=== PATIENT | male | born 1945 | race Caucasian/White ===

== ENCOUNTER 2021-05-04 01:57 | Inpatient (IN) ==
[2021-05-04] MEDS ORDERED: Naloxone 0.4 MG/ML INJ IVP PRN (13:29)
[2021-05-04] MEDS ORDERED: Ondansetron 4 MG/2 ML VIAL IVP PRN (13:29)
[2021-05-04] MEDS ORDERED: 0.9 % Sodium Chloride 1,000 ML IVC SCH (13:45)
[2021-05-04 14:23] LABS: Basophils % 0.4 %; Eosinophils # 0.2 K/mcL (0.0-0.6); Eosinophils % 2.3 %; Hematocrit 38.6 % (37.5-50.1); Hemoglobin 12.1 g/dL (12.9-16.9); Immature Granulocytes % 0.2 % (0-4); Lymphocytes # 1.6 K/mcL (0.6-4.6); Lymphocytes % 19.4 %; Mean Corpuscular HGB Conc 31.3 g/dL (31.6-35.5); Mean Corpuscular Hemoglobin 30.9 pg (28.0-33.3); Mean Corpuscular Volume 98.5 fL (83.0-100.0); Mean Platelet Volume 12.3 fL (9.4-12.4); Monocytes # 0.6 K/mcL (0.0-1.3); Monocytes % 7.8 %; Neutrophils # 5.7 K/mcL (1.6-8.9); Platelet Count 141 K/mcL (140-400); Red Blood Count 3.92 M/mcL (4.19-5.50); Red Cell Distribution Width 16.2 % (11.5-14.5); Segmented Neutrophils % 69.9 %; White Blood Count 8.2 K/mcL (4.3-11.1)
[2021-05-04 14:30] LABS: INR 1.4
[2021-05-04 15:09] LABS: Troponin I < 0.03 ng/mL (< 0.04)
[2021-05-04 15:20] LABS: BUN/Creatinine Ratio 16 (6-26); Blood Urea Nitrogen 40 mg/dL (8-23); Calcium 8.1 mg/dL (8.6-10.3); Carbon Dioxide 22 mEq/L (23-29); Chloride 107 mEq/L (98-107); Glucose 157 mg/dL (70-105); Magnesium 1.9 mg/dL (1.6-2.6); Osmolality,Calculated 301 (280-300); Potassium 5.2 mEq/L (3.5-5.1); Sodium 139 mEq/L (136-145); eGFR For African Americans 30 (> 60); eGFR For Non-African Americans 24 (> 60)
[2021-05-04] MEDS: Azithromycin 500 MG in 0.9 % Sodium Chloride 250 ML IVPB SCH (15:28)
[2021-05-04] MEDS ORDERED: Dextrose Gel 15 GM/37.5 ML TUBE PO PRN ×2 (15:42)
[2021-05-04] MEDS ORDERED: *HR* Dextrose 50 % in Water (Syg) 50 ML SYRINGE IVP PRN (15:42)
[2021-05-04] MEDS ORDERED: D5% in Water 1,000 ML IVC PRN (15:42)
[2021-05-04] MEDS: Insulin LISPRO 300 UNITS/3 ML VIAL SUBQ SCH ×2 (16:59→20:09)
[2021-05-04] MEDS: cefTRIAXone 1,000 MG in 0.9 % Sodium Chloride Mini Bag 100 ML IVPB SCH (17:01)
[2021-05-04] MEDS: Pregabalin 75 MG CAPSULE PO SCH (20:09)
[2021-05-04] MEDS: Famotidine 20 MG TABLET PO SCH (20:09)
[2021-05-04] MEDS: *HR* OxyCODONE Immed Rel 5 MG TABLET PO PRN (20:11)
[2021-05-04] MEDS: *HR* Heparin 5,000 UNIT/ML VIAL SQ SCH (21:52)
[2021-05-05 01:01] LABS: Basophils % 0.4 %; Eosinophils # 0.3 K/mcL (0.0-0.6); Eosinophils % 4.2 %; Hematocrit 37.7 % (37.5-50.1); Hemoglobin 11.3 g/dL (12.9-16.9); Immature Granulocytes % 0.3 % (0-4); Lymphocytes # 1.9 K/mcL (0.6-4.6); Lymphocytes % 24.7 %; Mean Corpuscular Hemoglobin 30.1 pg (28.0-33.3); Mean Corpuscular Volume 100.3 fL (83.0-100.0); Mean Platelet Volume 12.4 fL (9.4-12.4); Monocytes # 0.6 K/mcL (0.0-1.3); Monocytes % 8.1 %; Neutrophils # 4.9 K/mcL (1.6-8.9); Platelet Count 135 K/mcL (140-400); Red Blood Count 3.76 M/mcL (4.19-5.50); Red Cell Distribution Width 16.2 % (11.5-14.5); Segmented Neutrophils % 62.3 %; White Blood Count 7.8 K/mcL (4.3-11.1)
[2021-05-05 01:03] LABS: BUN/Creatinine Ratio 20 (6-26); Blood Urea Nitrogen 37 mg/dL (8-23); Carbon Dioxide 23 mEq/L (23-29); Chloride 108 mEq/L (98-107); Glucose 150 mg/dL (70-105); Magnesium 1.8 mg/dL (1.6-2.6); Osmolality,Calculated 302 (280-300); Potassium 4.6 mEq/L (3.5-5.1); Sodium 140 mEq/L (136-145); Troponin I < 0.03 ng/mL (< 0.04); eGFR For African Americans 44 (> 60); eGFR For Non-African Americans 36 (> 60)
[2021-05-05 01:13] LABS: INR 1.3; Prothrombin Time 14.1 Seconds (9.4-12.1)
[2021-05-05] MEDS: *HR* Heparin 5,000 UNIT/ML VIAL SQ SCH ×3 (05:23→20:29)
[2021-05-05] MEDS: Insulin LISPRO 300 UNITS/3 ML VIAL SUBQ SCH ×4 (08:07→20:18)
[2021-05-05] MEDS: Aspirin 81 MG TAB.CHEW PO SCH (08:23)
[2021-05-05] MEDS: Famotidine 20 MG TABLET PO SCH ×2 (08:23→20:28)
[2021-05-05] MEDS: Pregabalin 75 MG CAPSULE PO SCH ×2 (08:23→20:28)
[2021-05-05] MEDS: *HR* OxyCODONE Immed Rel 5 MG TABLET PO PRN ×3 (08:35→20:35)
[2021-05-05] MEDS: Azithromycin 500 MG in 0.9 % Sodium Chloride 250 ML IVPB SCH (13:32)
[2021-05-05] MEDS: cefTRIAXone 1,000 MG in 0.9 % Sodium Chloride Mini Bag 100 ML IVPB SCH (15:36)
[2021-05-05] MEDS ORDERED: Perflutren Lipid Microsphere 1.3 ML in 0.9 % Sodium Chloride 8.7 ML IVP PRN (16:37)
[2021-05-06 02:59] LABS: Hematocrit 34.3 % (37.5-50.1); Hemoglobin 10.9 g/dL (12.9-16.9); Mean Corpuscular HGB Conc 31.8 g/dL (31.6-35.5); Mean Corpuscular Hemoglobin 30.5 pg (28.0-33.3); Mean Corpuscular Volume 96.1 fL (83.0-100.0); Mean Platelet Volume 12.5 fL (9.4-12.4); Platelet Count 115 K/mcL (140-400); Red Blood Count 3.57 M/mcL (4.19-5.50); Red Cell Distribution Width 15.9 % (11.5-14.5); White Blood Count 7.8 K/mcL (4.3-11.1)
[2021-05-06 03:03] LABS: BUN/Creatinine Ratio 24 (6-26); Blood Urea Nitrogen 32 mg/dL (8-23); Calcium 8.9 mg/dL (8.6-10.3); Carbon Dioxide 25 mEq/L (23-29); Chloride 107 mEq/L (98-107); Glucose 121 mg/dL (70-105); Magnesium 1.8 mg/dL (1.6-2.6); Osmolality,Calculated 300 (280-300); Sodium 141 mEq/L (136-145); eGFR For African Americans > 60 (> 60); eGFR For Non-African Americans 52 (> 60)
[2021-05-06] MEDS: *HR* OxyCODONE Immed Rel 5 MG TABLET PO PRN ×2 (03:57→12:13)
[2021-05-06] MEDS: *HR* Heparin 5,000 UNIT/ML VIAL SQ SCH ×3 (05:46→21:40)
[2021-05-06] MEDS ORDERED: Regadenoson 0.4 MG/5 ML SYRINGE IVP ONE (06:09)
[2021-05-06] MEDS: Insulin LISPRO 300 UNITS/3 ML VIAL SUBQ SCH ×4 (10:31→21:44)
[2021-05-06] MEDS: Aspirin 81 MG TAB.CHEW PO SCH (10:51)
[2021-05-06] MEDS: Pregabalin 75 MG CAPSULE PO SCH ×2 (10:51→21:40)
[2021-05-06] MEDS: Famotidine 20 MG TABLET PO SCH (10:52)
[2021-05-06] MEDS: Morphine Sulfate 2 MG/ML SYRINGE IVP PRN (14:08)
[2021-05-06] MEDS ORDERED: *HR* FentaNYL (PF) 100 MCG/2 ML VIAL ONE (14:56)
[2021-05-06] MEDS ORDERED: Lidocaine -MPF 2% 5 ML VIAL ONE (14:56)
[2021-05-06] MEDS ORDERED: *HR* Propofol 200 MG/20 ML VIAL IVP ONE (14:56)
[2021-05-06] MEDS: Azithromycin 500 MG in 0.9 % Sodium Chloride 250 ML IVPB SCH (15:05)
[2021-05-06] MEDS: cefTRIAXone 1,000 MG in 0.9 % Sodium Chloride Mini Bag 100 ML IVPB SCH (18:29)
[2021-05-07 04:52] LABS: Hematocrit 34.3 % (37.5-50.1); Hemoglobin 10.5 g/dL (12.9-16.9); Mean Corpuscular HGB Conc 30.6 g/dL (31.6-35.5); Mean Corpuscular Hemoglobin 30.1 pg (28.0-33.3); Mean Corpuscular Volume 98.3 fL (83.0-100.0); Mean Platelet Volume 12.3 fL (9.4-12.4); Platelet Count 106 K/mcL (140-400); Red Blood Count 3.49 M/mcL (4.19-5.50); Red Cell Distribution Width 15.7 % (11.5-14.5); White Blood Count 6.2 K/mcL (4.3-11.1)
[2021-05-07 05:09] LABS: Calcium 9.1 mg/dL (8.6-10.3); Carbon Dioxide 22 mEq/L (23-29); Chloride 111 mEq/L (98-107); Glucose 100 mg/dL (70-105); Magnesium 1.8 mg/dL (1.6-2.6); Potassium 4.6 mEq/L (3.5-5.1); Sodium 138 mEq/L (136-145); eGFR For African Americans > 60 (> 60); eGFR For Non-African Americans > 60 (> 60)
[2021-05-07 05:13] LABS: BUN/Creatinine Ratio 27 (6-26); Blood Urea Nitrogen 24 mg/dL (8-23); Osmolality,Calculated 290 (280-300)
[2021-05-07] MEDS: *HR* Heparin 5,000 UNIT/ML VIAL SQ SCH (05:32)
[2021-05-07] MEDS ORDERED: Famotidine 20 MG TABLET PO SCH ×2 (06:30→09:00)
[2021-05-07] MEDS: Insulin LISPRO 300 UNITS/3 ML VIAL SUBQ SCH ×4 (07:36→20:14)
[2021-05-07] MEDS: Pregabalin 75 MG CAPSULE PO SCH ×2 (08:36→20:13)
[2021-05-07] MEDS: Aspirin 81 MG TAB.CHEW PO SCH (08:36)
[2021-05-07] MEDS: Fluticasone Propionate Nasal 50 MCG/SPRAY BOTTLE NS SCH (10:54)
[2021-05-07] MEDS: Azithromycin 500 MG in 0.9 % Sodium Chloride 250 ML IVPB SCH (13:42)
[2021-05-07] MEDS: cefTRIAXone 1,000 MG in 0.9 % Sodium Chloride Mini Bag 100 ML IVPB SCH (14:58)
[2021-05-07] MEDS: *HR* OxyCODONE Immed Rel 5 MG TABLET PO PRN (19:39)
[2021-05-07] MEDS: Famotidine 20 MG TABLET PO SCH (20:13)
[2021-05-07] MEDS: Apixaban 5 MG TABLET PO SCH (20:14)
[2021-05-07] MEDS ORDERED: *HR* Metoprolol 5 MG/5 ML VIAL IVP ONE (22:34)
[2021-05-08 08:17] LABS: Hematocrit 33.2 % (37.5-50.1); Hemoglobin 10.9 g/dL (12.9-16.9); Mean Corpuscular HGB Conc 32.8 g/dL (31.6-35.5); Mean Corpuscular Hemoglobin 31.1 pg (28.0-33.3); Mean Corpuscular Volume 94.9 fL (83.0-100.0); Platelet Count 128 K/mcL (140-400); Red Cell Distribution Width 15.3 % (11.5-14.5); White Blood Count 6.4 K/mcL (4.3-11.1)
[2021-05-08 08:27] LABS: BUN/Creatinine Ratio 30 (6-26); Blood Urea Nitrogen 25 mg/dL (8-23); Calcium 9.4 mg/dL (8.6-10.3); Carbon Dioxide 23 mEq/L (23-29); Chloride 105 mEq/L (98-107); Glucose 128 mg/dL (70-105); Magnesium 1.7 mg/dL (1.6-2.6); Osmolality,Calculated 302 (280-300); Potassium 4.8 mEq/L (3.5-5.1); Sodium 143 mEq/L (136-145); eGFR For African Americans > 60 (> 60); eGFR For Non-African Americans > 60 (> 60)
[2021-05-08] MEDS: Famotidine 20 MG TABLET PO SCH ×2 (09:04→20:43)
[2021-05-08] MEDS: Pregabalin 75 MG CAPSULE PO SCH ×2 (09:04→20:42)
[2021-05-08] MEDS: Apixaban 5 MG TABLET PO SCH ×2 (09:05→20:43)
[2021-05-08] MEDS: Aspirin 81 MG TAB.CHEW PO SCH (09:05)
[2021-05-08] MEDS: Azithromycin 250 MG TABLET PO SCH (09:06)
[2021-05-08] MEDS: Insulin LISPRO 300 UNITS/3 ML VIAL SUBQ SCH ×4 (09:07→20:50)
[2021-05-08] MEDS: Fluticasone Propionate Nasal 50 MCG/SPRAY BOTTLE NS SCH (09:08)
[2021-05-08] MEDS: Cefdinir 300 MG CAPSULE PO SCH ×2 (12:01→20:43)
[2021-05-08] MEDS ORDERED: Furosemide 20 MG/2 ML VIAL IVP ONE (12:22)
[2021-05-08] MEDS: *HR* OxyCODONE Immed Rel 5 MG TABLET PO PRN ×2 (13:37→23:14)
[2021-05-08] MEDS: QUEtiapine Fumarate 25 MG TABLET PO SCH (20:44)
[2021-05-08] MEDS ORDERED: Haloperidol Lactate 5 MG/ML VIAL IVP ONE (23:19)
[2021-05-09] MEDS: *HR* OxyCODONE Immed Rel 5 MG TABLET PO PRN ×2 (03:37→21:00)
[2021-05-09] MEDS: Insulin LISPRO 300 UNITS/3 ML VIAL SUBQ SCH ×4 (11:11→20:54)
[2021-05-09] MEDS: Aspirin 81 MG TAB.CHEW PO SCH (16:15)
[2021-05-09] MEDS: Azithromycin 250 MG TABLET PO SCH (16:16)
[2021-05-09] MEDS: Famotidine 20 MG TABLET PO SCH ×2 (16:16→21:01)
[2021-05-09] MEDS: Apixaban 5 MG TABLET PO SCH ×2 (16:16→21:01)
[2021-05-09] MEDS: Cefdinir 300 MG CAPSULE PO SCH ×2 (16:16→21:01)
[2021-05-09] MEDS: Fluticasone Propionate Nasal 50 MCG/SPRAY BOTTLE NS SCH (16:16)
[2021-05-09] MEDS: Pregabalin 75 MG CAPSULE PO SCH ×2 (16:16→21:01)
[2021-05-09] MEDS: QUEtiapine Fumarate 25 MG TABLET PO SCH (21:01)
[2021-05-09] MEDS: Morphine Sulfate 2 MG/ML SYRINGE IVP PRN (22:21)
[2021-05-10] MEDS ORDERED: Ketorolac 15 MG/ML VIAL IVP ONE (00:45)
[2021-05-10] MEDS ORDERED: *HR* OxyCODONE Immed Rel 5 MG TABLET PO ONE (02:30)
[2021-05-10] MEDS: Insulin LISPRO 300 UNITS/3 ML VIAL SUBQ SCH ×4 (08:18→19:56)
[2021-05-10] MEDS: Fluticasone Propionate Nasal 50 MCG/SPRAY BOTTLE NS SCH (13:18)
[2021-05-10] MEDS: Aspirin 81 MG TAB.CHEW PO SCH (13:18)
[2021-05-10] MEDS: Pregabalin 75 MG CAPSULE PO SCH ×2 (13:18→20:02)
[2021-05-10] MEDS: Apixaban 5 MG TABLET PO SCH ×2 (13:18→20:02)
[2021-05-10] MEDS: Famotidine 20 MG TABLET PO SCH ×2 (13:19→20:02)
[2021-05-10] MEDS: Azithromycin 250 MG TABLET PO SCH (13:19)
[2021-05-10] MEDS: Cefdinir 300 MG CAPSULE PO SCH ×2 (13:19→20:02)
[2021-05-10] MEDS: 0.9 % Sodium Chloride 1,000 ML IVC SCH (13:27)
[2021-05-10] MEDS: Morphine Sulfate 2 MG/ML SYRINGE IVP PRN ×2 (19:59→23:59)
[2021-05-11] MEDS: Morphine Sulfate 2 MG/ML SYRINGE IVP PRN ×2 (06:08→11:54)
[2021-05-11] MEDS: Insulin LISPRO 300 UNITS/3 ML VIAL SUBQ SCH ×4 (08:49→19:20)
[2021-05-11] MEDS: 0.9 % Sodium Chloride 1,000 ML IVC SCH (08:50)
[2021-05-11] MEDS: Pregabalin 75 MG CAPSULE PO SCH ×2 (08:51→21:44)
[2021-05-11] MEDS: Aspirin 81 MG TAB.CHEW PO SCH (08:51)
[2021-05-11] MEDS: Apixaban 5 MG TABLET PO SCH ×2 (08:52→21:45)
[2021-05-11] MEDS: Famotidine 20 MG TABLET PO SCH ×2 (08:52→21:45)
[2021-05-11] MEDS: Fluticasone Propionate Nasal 50 MCG/SPRAY BOTTLE NS SCH (09:00)
[2021-05-11] MEDS: *HR* OxyCODONE Immed Rel 5 MG TABLET PO PRN (16:41)
[2021-05-11] MEDS: polyethylene glycoL 3350 17 GM POWD.PACK PO SCH (17:55)
[2021-05-12 05:15] LABS: Hematocrit 35.4 % (37.5-50.1); Hemoglobin 10.7 g/dL (12.9-16.9); Mean Corpuscular HGB Conc 30.2 g/dL (31.6-35.5); Mean Corpuscular Hemoglobin 29.6 pg (28.0-33.3); Mean Corpuscular Volume 98.1 fL (83.0-100.0); Mean Platelet Volume 11.3 fL (9.4-12.4); Platelet Count 160 K/mcL (140-400); Red Blood Count 3.61 M/mcL (4.19-5.50); Red Cell Distribution Width 15.6 % (11.5-14.5); White Blood Count 6.9 K/mcL (4.3-11.1)
[2021-05-12 05:36] LABS: BUN/Creatinine Ratio 36 (6-26); Blood Urea Nitrogen 28 mg/dL (8-23); Calcium 8.9 mg/dL (8.6-10.3); Carbon Dioxide 22 mEq/L (23-29); Chloride 106 mEq/L (98-107); Glucose 121 mg/dL (70-105); Osmolality,Calculated 295 (280-300); Potassium 4.1 mEq/L (3.5-5.1); Sodium 139 mEq/L (136-145); eGFR For African Americans > 60 (> 60); eGFR For Non-African Americans > 60 (> 60)
[2021-05-12] MEDS: *HR* OxyCODONE Immed Rel 5 MG TABLET PO PRN ×3 (07:15→23:06)
[2021-05-12] MEDS: Insulin LISPRO 300 UNITS/3 ML VIAL SUBQ SCH ×4 (08:47→20:05)
[2021-05-12] MEDS: 0.9 % Sodium Chloride 1,000 ML IVC SCH (08:52)
[2021-05-12] MEDS: Apixaban 5 MG TABLET PO SCH ×2 (08:53→20:05)
[2021-05-12] MEDS: Aspirin 81 MG TAB.CHEW PO SCH (08:53)
[2021-05-12] MEDS: Famotidine 20 MG TABLET PO SCH ×2 (08:53→20:04)
[2021-05-12] MEDS: polyethylene glycoL 3350 17 GM POWD.PACK PO SCH (08:54)
[2021-05-12] MEDS: Pregabalin 75 MG CAPSULE PO SCH ×2 (08:54→20:05)
[2021-05-12] MEDS: Fluticasone Propionate Nasal 50 MCG/SPRAY BOTTLE NS SCH (08:54)
[2021-05-12 20:24] LABS: Bilirubin,Urine Negative (Negative); Blood,Urine Moderate (Negative); Clarity,Urine Clear (Clear); Color,Urine Yellow (Yellow); Glucose,Urine (UA) Normal (Normal); Ketones,Urine Trace mg/dL (Negative); Leukocyte Esterase,Urine Negative (Negative); Mucus,Urine Few per lpf (None-Few); Nitrite,Urine Negative (Negative); PH,Urine 5.5 pH Units (5.0-8.0); Protein,Urine 30 mg/dL (Neg-Trace); Specific Gravity,Urine 1.026 (1.010-1.025)
[2021-05-13] MEDS: *HR* OxyCODONE Immed Rel 5 MG TABLET PO PRN (07:29)
[2021-05-13] MEDS: Insulin LISPRO 300 UNITS/3 ML VIAL SUBQ SCH ×2 (09:09→11:45)
[2021-05-13] MEDS: Pregabalin 75 MG CAPSULE PO SCH (09:25)
[2021-05-13] MEDS: Apixaban 5 MG TABLET PO SCH (09:25)
[2021-05-13] MEDS: Aspirin 81 MG TAB.CHEW PO SCH (09:26)
[2021-05-13] MEDS: Famotidine 20 MG TABLET PO SCH (09:26)
[2021-05-13] MEDS: polyethylene glycoL 3350 17 GM POWD.PACK PO SCH (09:26)
[2021-05-13] MEDS ORDERED: Polymyxn-B/Trimeth Opth Drops 10 ML BOTTLE RIGHT EYE SCH (09:30)
[2021-05-13] MEDS ORDERED: Polymyxn-B/Trimeth Opth Drops 10 ML BOTTLE LEFT EYE SCH (09:30)
[2021-05-13] MEDS: Fluticasone Propionate Nasal 50 MCG/SPRAY BOTTLE NS SCH (09:40)
[2021-05-13 11:28] VITALS: BP 136/78; PULSE 96; TEMP 97.8; O2SAT 95
[2021-05-13 12:47] LABS: Adenovirus Not Detected (Not Detect); Coronavirus 229E Not Detected (Not Detect); Coronavirus HKU1 Not Detected (Not Detect); Coronavirus NL63 Not Detected (Not Detect); Coronavirus OC43 Not Detected (Not Detect); Human Metapneumovirus Not Detected (Not Detect); Human Rhinovirus/Enterovirus Not Detected (Not Detect); SARS-CoV-2 Not Detected (Not Detect)
[2021-05-13 12:48] LABS: Bordetella Pertussis Not Detected (Not Detect); Chlamydophila pneumoniae Not Detected (Not Detect); Influenza A Subtype 2009 H1 Not Detected (Not Detect); Influenza B Not Detected (Not Detect); Mycoplasma pneumoniae Not Detected (Not Detect); Parainfluenza Virus 1 Not Detected (Not Detect); Parainfluenza Virus 2 Not Detected (Not Detect); Parainfluenza Virus 3 Not Detected (Not Detect); Parainfluenza Virus 4 Not Detected (Not Detect); Respiratory Syncytial Virus Not Detected (Not Detect)
[2021-05-13] MEDS ORDERED: Polymyxn-B/Trimeth Opth Drops 10 ML BOTTLE BOTH EYES SCH (13:00)
== END 2021-05-13 15:59 | DRG 313 ==
LOC: 4WAOSI → SUATTDRO 13:31
PROVIDERS: ADMIT Family Medicine; ATTEND Registered Nurse

== ENCOUNTER 2021-10-30 15:22 | Inpatient (IN) ==
[2021-10-30] MEDS ORDERED: cephALEXin 500 MG CAPSULE PO ONE (15:40)
[2021-10-31 07:05] LABS: Influenza A PCR Negative (Negative); Influenza B PCR Negative (Negative); Resp. Syncytial Virus PCR Negative (Negative); SARS-CoV-2 by PCR (In House) Negative (Negative)
[2021-10-31] MEDS ORDERED: MOM Conc 10 ML UD.LIQ PO PRN (16:05)
[2021-10-31] MEDS ORDERED: Ondansetron ODT 4 MG TAB.RAPDIS SL PRN (16:05)
[2021-10-31] MEDS ORDERED: Acetaminophen 325 MG TABLET PO PRN (16:05)
[2021-10-31] MEDS ORDERED: levoFLOXacin 750 MG TABLET PO SCH ×2 (16:15→21:00)
[2021-10-31] MEDS ORDERED: D5% in Water 1,000 ML IVC PRN (16:30)
[2021-10-31] MEDS ORDERED: *HR* Dextrose 50 % in Water (Syg) 50 ML SYRINGE IVP PRN (16:30)
[2021-10-31] MEDS ORDERED: Dextrose Gel 15 GM/37.5 ML TUBE PO PRN ×2 (16:30)
[2021-10-31] MEDS: Insulin LISPRO 300 UNITS/3 ML VIAL SUBQ SCH (20:22)
[2021-10-31] MEDS: *HR* LORazepam 2 MG/ML VIAL IM PRN (22:53)
[2021-11-01 05:38] LABS: Basophils % 0.5 %; Eosinophils # 0.1 K/mcL (0.0-0.6); Eosinophils % 1.1 %; Hematocrit 40.8 % (37.5-50.1); Hemoglobin 13.1 g/dL (12.9-16.9); Immature Granulocytes % 0.3 % (0-4); Lymphocytes # 2.5 K/mcL (0.6-4.6); Lymphocytes % 34.1 %; Mean Corpuscular HGB Conc 32.1 g/dL (31.6-35.5); Mean Corpuscular Hemoglobin 30.5 pg (28.0-33.3); Mean Corpuscular Volume 94.9 fL (83.0-100.0); Mean Platelet Volume 11.3 fL (9.4-12.4); Monocytes # 0.5 K/mcL (0.0-1.3); Monocytes % 7.2 %; Neutrophils # 4.2 K/mcL (1.6-8.9); Platelet Count 142 K/mcL (140-400); Red Cell Distribution Width 15.2 % (11.5-14.5); Segmented Neutrophils % 56.8 %; White Blood Count 7.4 K/mcL (4.3-11.1)
[2021-11-01 06:51] LABS: BUN/Creatinine Ratio 14 (6-26); Blood Urea Nitrogen 16 mg/dL (8-23); Calcium 7.8 mg/dL (8.6-10.3); Carbon Dioxide 27 mEq/L (23-29); Chloride 103 mEq/L (98-107); Glucose 73 mg/dL (70-105); Magnesium 1.9 mg/dL (1.6-2.6); Osmolality,Calculated 294 (280-300); Potassium 3.8 mEq/L (3.5-5.1); Sodium 142 mEq/L (136-145); eGFR For African Americans > 60 (> 60); eGFR For Non-African Americans > 60 (> 60)
[2021-11-01] MEDS: Insulin LISPRO 300 UNITS/3 ML VIAL SUBQ SCH ×3 (07:54→16:59)
[2021-11-01] MEDS: levoFLOXacin 750 MG TABLET PO SCH (10:57)
[2021-11-01] MEDS ORDERED: polyethylene glycoL 3350 17 GM POWD.PACK PO PRN (16:03)
[2021-11-01] MEDS: Pregabalin 75 MG CAPSULE PO SCH (22:30)
[2021-11-02] MEDS ORDERED: Furosemide 40 MG TABLET PO SCH (09:00)
[2021-11-02] MEDS: Pregabalin 75 MG CAPSULE PO SCH ×2 (09:23→22:24)
[2021-11-02] MEDS: levoFLOXacin 750 MG TABLET PO SCH (09:23)
[2021-11-02] MEDS: Aspirin Enteric Coated 81 MG Tablet PO SCH (09:24)
[2021-11-02] MEDS: QUEtiapine Fumarate 25 MG TABLET PO SCH ×3 (09:24→22:26)
[2021-11-02] MEDS: Insulin LISPRO 300 UNITS/3 ML VIAL SUBQ SCH ×3 (09:25→16:57)
[2021-11-02] MEDS: Melatonin 3 MG TABLET PO PRN (22:25)
[2021-11-03] MEDS: Insulin LISPRO 300 UNITS/3 ML VIAL SUBQ SCH ×3 (08:03→17:40)
[2021-11-03] MEDS: Aspirin Enteric Coated 81 MG Tablet PO SCH (08:08)
[2021-11-03] MEDS: QUEtiapine Fumarate 25 MG TABLET PO SCH ×3 (08:08→20:08)
[2021-11-03] MEDS: levoFLOXacin 750 MG TABLET PO SCH (08:08)
[2021-11-03] MEDS: Pregabalin 75 MG CAPSULE PO SCH ×2 (08:08→20:08)
[2021-11-03] MEDS ORDERED: 0.9 % Sodium Chloride 1,000 ML IV ONE (08:24)
[2021-11-03] MEDS: Ringers Solution, Lactated 1,000 ML IVC SCH ×2 (11:58→20:08)
[2021-11-03 12:22] LABS: Red Cell Distribution Width 15.6 % (11.5-14.5)
[2021-11-03 12:24] LABS: Hematocrit 34.7 % (37.5-50.1); Hemoglobin 11.2 g/dL (12.9-16.9); Immature Platelets 4.9 % (1.1-6.1); Mean Corpuscular HGB Conc 32.3 g/dL (31.6-35.5); Mean Corpuscular Volume 96.1 fL (83.0-100.0); Mean Platelet Volume 11.6 fL (9.4-12.4); Red Blood Count 3.61 M/mcL (4.19-5.50); White Blood Count 5.1 K/mcL (4.3-11.1)
[2021-11-03 12:42] LABS: Albumin 2.5 g/dL (3.5-5.7); Albumin/Globulin Ratio 0.7 (1.1-2.2); Bilirubin,Total 1.6 mg/dL (0.3-1.0); Calcium 7.9 mg/dL (8.6-10.3); Globulin 3.7 g/dL (2.4-3.5); Potassium 3.6 mEq/L (3.5-5.1); Total Protein 6.2 g/dL (6.4-8.9)
[2021-11-03] MEDS: *HR* Enoxaparin 40 MG/0.4 ML SYRINGE SQ SCH (13:03)
[2021-11-03] MEDS ORDERED: Albumin 25% 25gram/100mL 25 GM/100 ML IV.SOLN IVPB ONE (22:46)
[2021-11-04] MEDS ORDERED: 0.9 % Sodium Chloride 500 ML IVC ONE (01:57)
[2021-11-04] MEDS ORDERED: Albumin 25% 25gram/100mL 25 GM/100 ML IV.SOLN IVPB ONE (02:12)
[2021-11-04 02:30] LABS: Basophils % 0.3 %; Eosinophils # 0.1 K/mcL (0.0-0.6); Eosinophils % 2.5 %; Hematocrit 30.9 % (37.5-50.1); Immature Granulocytes % 0.5 % (0-4); Lymphocytes # 0.8 K/mcL (0.6-4.6); Lymphocytes % 21.8 %; Mean Corpuscular HGB Conc 32.4 g/dL (31.6-35.5); Mean Corpuscular Hemoglobin 31.3 pg (28.0-33.3); Mean Corpuscular Volume 96.9 fL (83.0-100.0); Mean Platelet Volume 11.4 fL (9.4-12.4); Monocytes # 0.3 K/mcL (0.0-1.3); Monocytes % 7.1 %; Neutrophils # 2.5 K/mcL (1.6-8.9); Red Blood Count 3.19 M/mcL (4.19-5.50); Red Cell Distribution Width 15.7 % (11.5-14.5); Segmented Neutrophils % 67.8 %; White Blood Count 3.7 K/mcL (4.3-11.1)
[2021-11-04 02:31] LABS: Platelet Count 89 K/mcL (140-400)
[2021-11-04 02:49] LABS: Alanine Aminotransferase 19 Units/L (7-52); Albumin 2.8 g/dL (3.5-5.7); Albumin/Globulin Ratio 0.8 (1.1-2.2); Alkaline Phosphatase 75 Units/L (34-104); Aspartate Amino Transferase 50 Units/L (13-39); BUN/Creatinine Ratio 12 (6-26); Bilirubin,Total 1.6 mg/dL (0.3-1.0); Blood Urea Nitrogen 17 mg/dL (8-23); Calcium 8.1 mg/dL (8.6-10.3); Carbon Dioxide 24 mEq/L (23-29); Chloride 106 mEq/L (98-107); Globulin 3.3 g/dL (2.4-3.5); Glucose 77 mg/dL (70-105); Osmolality,Calculated 292 (280-300); Potassium 3.4 mEq/L (3.5-5.1); Sodium 141 mEq/L (136-145); Total Protein 6.1 g/dL (6.4-8.9); eGFR For African Americans > 60 (> 60); eGFR For Non-African Americans 50 (> 60)
[2021-11-04 04:01] LABS: Bilirubin,Urine Negative (Negative); Blood,Urine Negative (Negative); Clarity,Urine Clear (Clear); Color,Urine Yellow (Yellow); Glucose,Urine (UA) Normal (Normal); Hyaline Casts,Urine Many per lpf (None Seen); Ketones,Urine Trace mg/dL (Negative); Leukocyte Esterase,Urine Large (Negative); Mucus,Urine Few per lpf (None-Few); Nitrite,Urine Negative (Negative); PH,Urine 5.5 pH Units (5.0-8.0); Protein,Urine 30 mg/dL (Neg-Trace); RBC,Urine 0-3 per hpf (0-3); Specific Gravity,Urine 1.022 (1.010-1.025); Squamous Epithelial Cell,Urine Few per hpf (None-Few); Urobilinogen,Urine Normal (Normal); WBC,Urine 15-30 per hpf (0-3)
[2021-11-04] MEDS: Vancomycin 1,250 MG/262.5 ML IV.SOLN IVPB SCH (04:52)
[2021-11-04] MEDS: Piperacillin/Tazobactam 3.375 GM in 0.9 % Sodium Chloride Mini Bag 100 ML IVPB SCH ×3 (04:56→18:09)
[2021-11-04] MEDS ORDERED: 0.9 % Sodium Chloride 1,000 ML IVC SCH (05:00)
[2021-11-04] MEDS: *HR* Enoxaparin 40 MG/0.4 ML SYRINGE SQ SCH (06:35)
[2021-11-04] MEDS ORDERED: Norepinephrine 4 MG/254 ML IV.SOLN IVC SCH (08:15)
[2021-11-04] MEDS: Insulin LISPRO 300 UNITS/3 ML VIAL SUBQ SCH ×3 (08:23→17:34)
[2021-11-04] MEDS: Ringers Solution, Lactated 2,000 ML IVC ONE ×2 (08:44→10:17)
[2021-11-04] MEDS ORDERED: Perflutren Lipid Microsphere 1.3 ML in 0.9 % Sodium Chloride 8.7 ML IVP PRN (08:45)
[2021-11-04] MEDS: Aspirin Enteric Coated 81 MG Tablet PO SCH (08:59)
[2021-11-04] MEDS ORDERED: Ringers Solution, Lactated 1,000 ML IVC ONE (10:30)
[2021-11-04] MEDS: 0.9 % Sodium Chloride 1,000 ML IVC SCH ×2 (11:24→18:09)
[2021-11-04 11:56] LABS: Hematocrit 29.9 % (37.5-50.1); Hemoglobin 9.7 g/dL (12.9-16.9)
[2021-11-05] MEDS: Piperacillin/Tazobactam 3.375 GM in 0.9 % Sodium Chloride Mini Bag 100 ML IVPB SCH ×2 (02:58→10:55)
[2021-11-05] MEDS: Vancomycin 1,250 MG/262.5 ML IV.SOLN IVPB SCH (02:58)
[2021-11-05] MEDS: 0.9 % Sodium Chloride 1,000 ML IVC SCH ×4 (04:25→17:39)
[2021-11-05] MEDS: *HR* Enoxaparin 40 MG/0.4 ML SYRINGE SQ SCH (05:52)
[2021-11-05] MEDS: Insulin LISPRO 300 UNITS/3 ML VIAL SUBQ SCH ×3 (09:14→16:41)
[2021-11-05] MEDS: Aspirin Enteric Coated 81 MG Tablet PO SCH (09:21)
[2021-11-05 13:34] LABS: Hemoglobin 10.4 g/dL (12.9-16.9); Mean Corpuscular HGB Conc 31.5 g/dL (31.6-35.5)
[2021-11-05 13:36] LABS: Immature Platelets 5.1 % (1.1-6.1); Mean Corpuscular Hemoglobin 30.6 pg (28.0-33.3); Mean Corpuscular Volume 97.1 fL (83.0-100.0); Mean Platelet Volume 11.5 fL (9.4-12.4); Red Blood Count 3.4 M/mcL (4.19-5.50); Red Cell Distribution Width 15.7 % (11.5-14.5); White Blood Count 3.8 K/mcL (4.3-11.1)
[2021-11-05 14:50] LABS: BUN/Creatinine Ratio 12 (6-26); Blood Urea Nitrogen 12 mg/dL (8-23); Calcium 7.2 mg/dL (8.6-10.3); Carbon Dioxide 20 mEq/L (23-29); Chloride 112 mEq/L (98-107); Glucose 102 mg/dL (70-105); Osmolality,Calculated 296 (280-300); Potassium 3.5 mEq/L (3.5-5.1); Sodium 143 mEq/L (136-145); eGFR For African Americans > 60 (> 60); eGFR For Non-African Americans > 60 (> 60)
[2021-11-06] MEDS: 0.9 % Sodium Chloride 1,000 ML IVC SCH ×3 (00:32→17:49)
[2021-11-06 05:29] LABS: Mean Corpuscular HGB Conc 31.6 g/dL (31.6-35.5); White Blood Count 4.3 K/mcL (4.3-11.1)
[2021-11-06 05:30] LABS: Hematocrit 33.9 % (37.5-50.1); Hemoglobin 10.7 g/dL (12.9-16.9); Immature Platelets 4.6 % (1.1-6.1); Mean Corpuscular Hemoglobin 30.8 pg (28.0-33.3); Mean Corpuscular Volume 97.7 fL (83.0-100.0); Mean Platelet Volume 10.9 fL (9.4-12.4); Red Blood Count 3.47 M/mcL (4.19-5.50); Red Cell Distribution Width 15.8 % (11.5-14.5)
[2021-11-06 05:52] LABS: BUN/Creatinine Ratio 11 (6-26); Blood Urea Nitrogen 10 mg/dL (8-23); Calcium 7.2 mg/dL (8.6-10.3); Carbon Dioxide 21 mEq/L (23-29); Chloride 113 mEq/L (98-107); Glucose 80 mg/dL (70-105); Osmolality,Calculated 294 (280-300); Potassium 3.5 mEq/L (3.5-5.1); Sodium 143 mEq/L (136-145); eGFR For African Americans > 60 (> 60); eGFR For Non-African Americans > 60 (> 60)
[2021-11-06] MEDS: *HR* Enoxaparin 40 MG/0.4 ML SYRINGE SQ SCH (05:58)
[2021-11-06] MEDS: Insulin LISPRO 300 UNITS/3 ML VIAL SUBQ SCH ×3 (08:37→17:34)
[2021-11-06] MEDS: Aspirin Enteric Coated 81 MG Tablet PO SCH (08:47)
[2021-11-06] MEDS: cefTRIAXone 1,000 MG in 0.9 % Sodium Chloride 10 ML IVP SCH (08:47)
[2021-11-06] MEDS: *HR* LORazepam 2 MG/ML VIAL IM PRN (22:22)
[2021-11-07] MEDS: *HR* Enoxaparin 40 MG/0.4 ML SYRINGE SQ SCH (06:13)
[2021-11-07] MEDS: Insulin LISPRO 300 UNITS/3 ML VIAL SUBQ SCH ×3 (07:57→17:45)
[2021-11-07] MEDS ORDERED: Perflutren Lipid Microsphere 1.3 ML in 0.9 % Sodium Chloride 8.7 ML IVP PRN (08:17)
[2021-11-07] MEDS: Aspirin Enteric Coated 81 MG Tablet PO SCH (08:37)
[2021-11-07] MEDS: 0.9 % Sodium Chloride 1,000 ML IVC SCH ×2 (08:37→10:15)
[2021-11-07] MEDS: Cholecalciferol (D-3) 1,000 UNIT (25MCG) TABLET PO SCH (08:37)
[2021-11-07] MEDS: Famotidine 20 MG TABLET PO SCH ×2 (08:38→21:06)
[2021-11-07] MEDS: cefTRIAXone 1,000 MG in 0.9 % Sodium Chloride 10 ML IVP SCH (08:38)
[2021-11-07] MEDS: Ringers Solution, Lactated 1,000 ML IVC SCH (10:15)
[2021-11-07] MEDS: Furosemide 40 MG/4 ML VIAL IVP SCH ×2 (15:35→21:06)
[2021-11-07] MEDS: *HR* LORazepam 2 MG/ML VIAL IM PRN (18:33)
[2021-11-07] MEDS: Melatonin 3 MG TABLET PO PRN (21:06)
[2021-11-08] MEDS ORDERED: Haloperidol Lactate 5 MG/ML VIAL IM ONE (01:22)
[2021-11-08] MEDS: *HR* LORazepam 2 MG/ML VIAL IM PRN (01:24)
[2021-11-08] MEDS: Ipratropium/Albuterol Neb 3 ML IH PRN (01:38)
[2021-11-08 01:43] LABS: ABG Base Excess -1 mEq/L (-2 to 3); ABG HCO3 24 mEq/L (21-27); ABG Oxygen Saturation 100 % (95-98); ABG PCO2 38 mmHg (35-45); ABG PH 7.41 pH Units (7.32-7.45); ABG PO2 225 mmHg (85-104); ABG TCO2 25 mEq/L (20-26)
[2021-11-08 03:47] LABS: Basophils % 0.8 %; Eosinophils # 0.1 K/mcL (0.0-0.6); Eosinophils % 1.6 %; Hematocrit 36.6 % (37.5-50.1); Hemoglobin 11.7 g/dL (12.9-16.9); Immature Granulocytes % 0.4 % (0-4); Lymphocytes # 1.5 K/mcL (0.6-4.6); Lymphocytes % 28.5 %; Mean Corpuscular Hemoglobin 30.9 pg (28.0-33.3); Mean Corpuscular Volume 96.6 fL (83.0-100.0); Mean Platelet Volume 11.1 fL (9.4-12.4); Monocytes # 0.4 K/mcL (0.0-1.3); Monocytes % 8.6 %; Neutrophils # 3.1 K/mcL (1.6-8.9); Platelet Count 100 K/mcL (140-400); Red Blood Count 3.79 M/mcL (4.19-5.50); Red Cell Distribution Width 15.6 % (11.5-14.5); Segmented Neutrophils % 60.1 %; White Blood Count 5.1 K/mcL (4.3-11.1)
[2021-11-08] MEDS: QUEtiapine Fumarate 25 MG TABLET PO SCH ×3 (03:54→21:57)
[2021-11-08 04:02] LABS: BUN/Creatinine Ratio 6 (6-26); Blood Urea Nitrogen 5 mg/dL (8-23); Calcium 7.9 mg/dL (8.6-10.3); Carbon Dioxide 25 mEq/L (23-29); Chloride 109 mEq/L (98-107); Glucose 93 mg/dL (70-105); Osmolality,Calculated 295 (280-300); Potassium 3.1 mEq/L (3.5-5.1); Sodium 144 mEq/L (136-145); eGFR For African Americans > 60 (> 60); eGFR For Non-African Americans > 60 (> 60)
[2021-11-08] MEDS: *HR* Enoxaparin 40 MG/0.4 ML SYRINGE SQ SCH (05:59)
[2021-11-08] MEDS: Insulin LISPRO 300 UNITS/3 ML VIAL SUBQ SCH ×3 (07:51→16:55)
[2021-11-08] MEDS: Famotidine 20 MG TABLET PO SCH ×2 (07:53→21:54)
[2021-11-08] MEDS: Cholecalciferol (D-3) 1,000 UNIT (25MCG) TABLET PO SCH (07:53)
[2021-11-08] MEDS: Aspirin Enteric Coated 81 MG Tablet PO SCH (07:53)
[2021-11-08] MEDS: cefTRIAXone 1,000 MG in 0.9 % Sodium Chloride 10 ML IVP SCH (07:54)
[2021-11-08] MEDS: Furosemide 40 MG/4 ML VIAL IVP SCH (16:58)
[2021-11-09 03:41] LABS: BUN/Creatinine Ratio 5 (6-26); Blood Urea Nitrogen 5 mg/dL (8-23); Calcium 7.9 mg/dL (8.6-10.3); Carbon Dioxide 29 mEq/L (23-29); Chloride 108 mEq/L (98-107); Glucose 71 mg/dL (70-105); Osmolality,Calculated 298 (280-300); Potassium 3.2 mEq/L (3.5-5.1); Sodium 146 mEq/L (136-145); eGFR For African Americans > 60 (> 60); eGFR For Non-African Americans > 60 (> 60)
[2021-11-09] MEDS: *HR* Enoxaparin 40 MG/0.4 ML SYRINGE SQ SCH (06:16)
[2021-11-09] MEDS: Insulin LISPRO 300 UNITS/3 ML VIAL SUBQ SCH ×3 (07:51→17:05)
[2021-11-09] MEDS: Cholecalciferol (D-3) 1,000 UNIT (25MCG) TABLET PO SCH ×2 (08:12→09:27)
[2021-11-09] MEDS: Aspirin Enteric Coated 81 MG Tablet PO SCH ×2 (08:13→09:27)
[2021-11-09] MEDS: Famotidine 20 MG TABLET PO SCH ×3 (08:13→20:21)
[2021-11-09] MEDS: cefTRIAXone 1,000 MG in 0.9 % Sodium Chloride 10 ML IVP SCH (08:13)
[2021-11-09] MEDS: Furosemide 40 MG/4 ML VIAL IVP SCH (08:20)
[2021-11-09] MEDS: QUEtiapine Fumarate 25 MG TABLET PO SCH ×2 (09:25→20:22)
[2021-11-09] MEDS: Ipratropium/Albuterol Neb 3 ML IH SCH ×2 (11:18→20:31)
[2021-11-10] MEDS: *HR* LORazepam 2 MG/ML VIAL IM PRN ×2 (01:34→21:49)
[2021-11-10 02:45] LABS: BUN/Creatinine Ratio 5 (6-26); Blood Urea Nitrogen 6 mg/dL (8-23); Calcium 7.9 mg/dL (8.6-10.3); Carbon Dioxide 29 mEq/L (23-29); Chloride 105 mEq/L (98-107); Glucose 96 mg/dL (70-105); Osmolality,Calculated 297 (280-300); Potassium 3.9 mEq/L (3.5-5.1); Sodium 145 mEq/L (136-145); eGFR For African Americans > 60 (> 60); eGFR For Non-African Americans > 60 (> 60)
[2021-11-10] MEDS: Insulin LISPRO 300 UNITS/3 ML VIAL SUBQ SCH ×3 (08:19→17:20)
[2021-11-10] MEDS: *HR* Enoxaparin 40 MG/0.4 ML SYRINGE SQ SCH (08:19)
[2021-11-10] MEDS: Aspirin Enteric Coated 81 MG Tablet PO SCH (08:31)
[2021-11-10] MEDS: Cholecalciferol (D-3) 1,000 UNIT (25MCG) TABLET PO SCH (08:31)
[2021-11-10] MEDS: Famotidine 20 MG TABLET PO SCH (08:31)
[2021-11-10] MEDS: QUEtiapine Fumarate 25 MG TABLET PO SCH (08:31)
[2021-11-10] MEDS: cefTRIAXone 1,000 MG in 0.9 % Sodium Chloride 10 ML IVP SCH (08:41)
[2021-11-10] MEDS: Ipratropium/Albuterol Neb 3 ML IH SCH ×2 (10:41→19:41)
[2021-11-10] MEDS ORDERED: Furosemide 20 MG/2 ML VIAL IVP ONE (10:45)
[2021-11-10] MEDS: Haloperidol Lactate 5 MG/ML VIAL IM PRN (20:58)
[2021-11-11] MEDS: Famotidine 20 MG TABLET PO SCH ×3 (05:03→20:01)
[2021-11-11] MEDS: QUEtiapine Fumarate 25 MG TABLET PO SCH ×3 (05:03→20:00)
[2021-11-11] MEDS: Ipratropium/Albuterol Neb 3 ML IH SCH ×2 (07:41→22:34)
[2021-11-11] MEDS: *HR* Enoxaparin 40 MG/0.4 ML SYRINGE SQ SCH (07:41)
[2021-11-11] MEDS: Insulin LISPRO 300 UNITS/3 ML VIAL SUBQ SCH ×3 (07:54→16:47)
[2021-11-11] MEDS: Cholecalciferol (D-3) 1,000 UNIT (25MCG) TABLET PO SCH (09:42)
[2021-11-11] MEDS: cefTRIAXone 1,000 MG in 0.9 % Sodium Chloride 10 ML IVP SCH (09:42)
[2021-11-11] MEDS: Aspirin Enteric Coated 81 MG Tablet PO SCH (09:43)
[2021-11-11] MEDS: Melatonin 3 MG TABLET PO PRN (20:00)
[2021-11-11] MEDS: *HR* LORazepam 2 MG/ML VIAL IM PRN (21:08)
[2021-11-11] MEDS: Haloperidol Lactate 5 MG/ML VIAL IM PRN (22:20)
[2021-11-12] MEDS: *HR* Enoxaparin 40 MG/0.4 ML SYRINGE SQ SCH (06:02)
[2021-11-12] MEDS: Insulin LISPRO 300 UNITS/3 ML VIAL SUBQ SCH ×3 (09:25→16:39)
[2021-11-12] MEDS: cefTRIAXone 1,000 MG in 0.9 % Sodium Chloride 10 ML IVP SCH (09:36)
[2021-11-12] MEDS: QUEtiapine Fumarate 25 MG TABLET PO SCH ×2 (09:36→19:58)
[2021-11-12] MEDS: Famotidine 20 MG TABLET PO SCH ×2 (09:36→19:59)
[2021-11-12] MEDS: Cholecalciferol (D-3) 1,000 UNIT (25MCG) TABLET PO SCH (09:36)
[2021-11-12] MEDS: Aspirin Enteric Coated 81 MG Tablet PO SCH (09:36)
[2021-11-12] MEDS: Ipratropium/Albuterol Neb 3 ML IH SCH (11:40)
[2021-11-12] MEDS: Melatonin 3 MG TABLET PO PRN (19:59)
[2021-11-13 02:56] LABS: Hematocrit 35.8 % (37.5-50.1); Hemoglobin 11.6 g/dL (12.9-16.9); Mean Corpuscular HGB Conc 32.4 g/dL (31.6-35.5); Red Cell Distribution Width 15.9 % (11.5-14.5)
[2021-11-13 02:58] LABS: Immature Platelets 5.2 % (1.1-6.1); Mean Corpuscular Hemoglobin 30.9 pg (28.0-33.3); Mean Corpuscular Volume 95.2 fL (83.0-100.0); Mean Platelet Volume 11.1 fL (9.4-12.4); Red Blood Count 3.76 M/mcL (4.19-5.50); White Blood Count 4.1 K/mcL (4.3-11.1)
[2021-11-13 03:25] LABS: BUN/Creatinine Ratio 9 (6-26); Blood Urea Nitrogen 9 mg/dL (8-23); Calcium 8.1 mg/dL (8.6-10.3); Carbon Dioxide 31 mEq/L (23-29); Chloride 106 mEq/L (98-107); Glucose 75 mg/dL (70-105); Osmolality,Calculated 301 (280-300); Potassium 2.6 mEq/L (3.5-5.1); Sodium 147 mEq/L (136-145); eGFR For African Americans > 60 (> 60); eGFR For Non-African Americans > 60 (> 60)
[2021-11-13] MEDS ORDERED: Prochlorperazine 10 MG/2 ML VIAL IVP ONE (03:39)
[2021-11-13] MEDS ORDERED: *HR* Metoprolol 5 MG/5 ML VIAL IVP ONE (03:39)
[2021-11-13 05:25] LABS: Albumin 2.8 g/dL (3.5-5.7)
[2021-11-13] MEDS ORDERED: Albumin 25% 25gram/100mL 25 GM/100 ML IV.SOLN IVPB ONE (05:39)
[2021-11-13] MEDS: *HR* Enoxaparin 40 MG/0.4 ML SYRINGE SQ SCH (06:27)
[2021-11-13] MEDS: Cholecalciferol (D-3) 1,000 UNIT (25MCG) TABLET PO SCH (09:41)
[2021-11-13] MEDS: Aspirin Enteric Coated 81 MG Tablet PO SCH (09:41)
[2021-11-13] MEDS: Famotidine 20 MG TABLET PO SCH ×2 (09:41→20:43)
[2021-11-13] MEDS: QUEtiapine Fumarate 25 MG TABLET PO SCH ×2 (09:42→20:41)
[2021-11-13] MEDS: cefTRIAXone 1,000 MG in 0.9 % Sodium Chloride 10 ML IVP SCH (09:53)
[2021-11-13] MEDS: Insulin LISPRO 300 UNITS/3 ML VIAL SUBQ SCH ×3 (09:54→16:28)
[2021-11-13] MEDS: Ipratropium/Albuterol Neb 3 ML IH PRN (11:35)
[2021-11-13] MEDS: *HR* HYDROcodone/Acet 5/325 mg TABLET PO PRN (20:42)
[2021-11-13] MEDS: Melatonin 3 MG TABLET PO PRN (20:43)
[2021-11-13 21:46] LABS: BUN/Creatinine Ratio 8 (6-26); Blood Urea Nitrogen 9 mg/dL (8-23); Calcium 8.5 mg/dL (8.6-10.3); Carbon Dioxide 27 mEq/L (23-29); Chloride 104 mEq/L (98-107); Glucose 139 mg/dL (70-105); Osmolality,Calculated 299 (280-300); Sodium 144 mEq/L (136-145); eGFR For African Americans > 60 (> 60); eGFR For Non-African Americans > 60 (> 60)
[2021-11-13 23:01] LABS: Magnesium 1.5 mg/dL (1.6-2.6); Phosphorous 3.1 mg/dL (2.7-4.5)
[2021-11-14 05:36] LABS: Hematocrit 37.1 % (37.5-50.1); Hemoglobin 11.9 g/dL (12.9-16.9); Mean Corpuscular HGB Conc 32.1 g/dL (31.6-35.5)
[2021-11-14 05:38] LABS: Basophils % 0.9 %; Eosinophils # 0.2 K/mcL (0.0-0.6); Eosinophils % 3.6 %; Immature Platelets 5.9 % (1.1-6.1); Lymphocytes # 1.9 K/mcL (0.6-4.6); Lymphocytes % 42.5 %; Mean Corpuscular Hemoglobin 31.1 pg (28.0-33.3); Mean Corpuscular Volume 96.9 fL (83.0-100.0); Monocytes # 0.3 K/mcL (0.0-1.3); Monocytes % 6.7 %; Neutrophils # 2.1 K/mcL (1.6-8.9); Platelet Count 103 K/mcL (140-400); Red Blood Count 3.83 M/mcL (4.19-5.50); Red Cell Distribution Width 16.1 % (11.5-14.5); Segmented Neutrophils % 46.3 %; White Blood Count 4.5 K/mcL (4.3-11.1)
[2021-11-14 06:00] LABS: BUN/Creatinine Ratio 9 (6-26); Blood Urea Nitrogen 9 mg/dL (8-23); Calcium 8.2 mg/dL (8.6-10.3); Carbon Dioxide 30 mEq/L (23-29); Chloride 106 mEq/L (98-107); Glucose 77 mg/dL (70-105); Magnesium 1.6 mg/dL (1.6-2.6); Osmolality,Calculated 299 (280-300); Phosphorous 3.5 mg/dL (2.7-4.5); Potassium 2.8 mEq/L (3.5-5.1); Sodium 146 mEq/L (136-145); eGFR For African Americans > 60 (> 60); eGFR For Non-African Americans > 60 (> 60)
[2021-11-14] MEDS: *HR* Enoxaparin 40 MG/0.4 ML SYRINGE SQ SCH (06:26)
[2021-11-14] MEDS: Insulin LISPRO 300 UNITS/3 ML VIAL SUBQ SCH ×2 (08:38→12:21)
[2021-11-14] MEDS: Cholecalciferol (D-3) 1,000 UNIT (25MCG) TABLET PO SCH (09:19)
[2021-11-14] MEDS: Magnesium Oxide 400 MG TABLET PO SCH (09:19)
[2021-11-14] MEDS: Aspirin Enteric Coated 81 MG Tablet PO SCH (09:19)
[2021-11-14] MEDS: Famotidine 20 MG TABLET PO SCH ×2 (09:20→20:45)
[2021-11-14] MEDS: QUEtiapine Fumarate 25 MG TABLET PO SCH ×2 (09:20→20:44)
[2021-11-14] MEDS ORDERED: Magnesium Sulfate 1 GM/102 ML PIGGYBACK IVPB ONE (09:36)
[2021-11-14] MEDS: cefTRIAXone 1,000 MG in 0.9 % Sodium Chloride 10 ML IVP SCH (09:52)
[2021-11-14 16:51] LABS: BUN/Creatinine Ratio 9 (6-26); Blood Urea Nitrogen 9 mg/dL (8-23); Calcium 8.2 mg/dL (8.6-10.3); Carbon Dioxide 28 mEq/L (23-29); Chloride 105 mEq/L (98-107); Glucose 89 mg/dL (70-105); Osmolality,Calculated 296 (280-300); Potassium 3.5 mEq/L (3.5-5.1); Sodium 144 mEq/L (136-145); eGFR For African Americans > 60 (> 60); eGFR For Non-African Americans > 60 (> 60)
[2021-11-14] MEDS: *HR* HYDROcodone/Acet 5/325 mg TABLET PO PRN (20:45)
[2021-11-14] MEDS: Melatonin 3 MG TABLET PO PRN (20:45)
[2021-11-15 02:16] LABS: Mean Corpuscular Hemoglobin 31.1 pg (28.0-33.3); Monocytes % 5.5 %; Red Cell Distribution Width 15.9 % (11.5-14.5)
[2021-11-15 02:18] LABS: Basophils % 0.8 %; Eosinophils # 0.2 K/mcL (0.0-0.6); Eosinophils % 3.6 %; Hematocrit 37.1 % (37.5-50.1); Hemoglobin 11.7 g/dL (12.9-16.9); Immature Granulocytes % 0.2 % (0-4); Immature Platelets 7.1 % (1.1-6.1); Lymphocytes # 1.5 K/mcL (0.6-4.6); Lymphocytes % 29.7 %; Mean Corpuscular HGB Conc 31.5 g/dL (31.6-35.5); Mean Corpuscular Volume 98.7 fL (83.0-100.0); Mean Platelet Volume 11.6 fL (9.4-12.4); Monocytes # 0.3 K/mcL (0.0-1.3); Red Blood Count 3.76 M/mcL (4.19-5.50); Segmented Neutrophils % 60.2 %
[2021-11-15 02:21] LABS: Platelet Count 99 K/mcL (140-400)
[2021-11-15 02:38] LABS: BUN/Creatinine Ratio 9 (6-26); Blood Urea Nitrogen 9 mg/dL (8-23); Calcium 8.1 mg/dL (8.6-10.3); Carbon Dioxide 29 mEq/L (23-29); Chloride 106 mEq/L (98-107); Glucose 76 mg/dL (70-105); Magnesium 1.7 mg/dL (1.6-2.6); Osmolality,Calculated 295 (280-300); Phosphorous 3.2 mg/dL (2.7-4.5); Potassium 3.5 mEq/L (3.5-5.1); Sodium 144 mEq/L (136-145); eGFR For African Americans > 60 (> 60); eGFR For Non-African Americans > 60 (> 60)
[2021-11-15] MEDS: *HR* Enoxaparin 40 MG/0.4 ML SYRINGE SQ SCH (05:52)
[2021-11-15] MEDS: Famotidine 20 MG TABLET PO SCH ×2 (09:39→20:07)
[2021-11-15] MEDS: Aspirin Enteric Coated 81 MG Tablet PO SCH (09:39)
[2021-11-15] MEDS: Magnesium Oxide 400 MG TABLET PO SCH ×2 (09:40→09:43)
[2021-11-15] MEDS: Cholecalciferol (D-3) 1,000 UNIT (25MCG) TABLET PO SCH (09:40)
[2021-11-15] MEDS: QUEtiapine Fumarate 25 MG TABLET PO SCH ×2 (09:40→20:07)
[2021-11-15] MEDS: cefTRIAXone 1,000 MG in 0.9 % Sodium Chloride 10 ML IVP SCH (09:40)
[2021-11-15] MEDS: *HR* LORazepam 2 MG/ML VIAL IM PRN (22:31)
[2021-11-16] MEDS: Melatonin 3 MG TABLET PO PRN (00:26)
[2021-11-16 04:55] LABS: Basophils # 0.1 K/mcL (0.0-0.2); Basophils % 0.8 %; Eosinophils # 0.2 K/mcL (0.0-0.6); Eosinophils % 2.7 %; Hematocrit 37.5 % (37.5-50.1); Hemoglobin 11.7 g/dL (12.9-16.9); Immature Granulocytes % 0.3 % (0-4); Immature Platelets 5.9 % (1.1-6.1); Lymphocytes # 1.8 K/mcL (0.6-4.6); Lymphocytes % 28.8 %; Mean Corpuscular HGB Conc 31.2 g/dL (31.6-35.5); Mean Corpuscular Hemoglobin 30.7 pg (28.0-33.3); Mean Corpuscular Volume 98.4 fL (83.0-100.0); Monocytes # 0.4 K/mcL (0.0-1.3); Monocytes % 6.3 %; Neutrophils # 3.8 K/mcL (1.6-8.9); Platelet Count 108 K/mcL (140-400); Red Blood Count 3.81 M/mcL (4.19-5.50); Red Cell Distribution Width 15.9 % (11.5-14.5); Segmented Neutrophils % 61.1 %; White Blood Count 6.2 K/mcL (4.3-11.1)
[2021-11-16 05:10] LABS: BUN/Creatinine Ratio 9 (6-26); Blood Urea Nitrogen 9 mg/dL (8-23); Calcium 8.3 mg/dL (8.6-10.3); Carbon Dioxide 29 mEq/L (23-29); Chloride 105 mEq/L (98-107); Glucose 87 mg/dL (70-105); Magnesium 1.7 mg/dL (1.6-2.6); Osmolality,Calculated 292 (280-300); Phosphorous 2.6 mg/dL (2.7-4.5); Potassium 3.6 mEq/L (3.5-5.1); Sodium 142 mEq/L (136-145); eGFR For African Americans > 60 (> 60); eGFR For Non-African Americans > 60 (> 60)
[2021-11-16] MEDS: *HR* Enoxaparin 40 MG/0.4 ML SYRINGE SQ SCH (05:28)
[2021-11-16] MEDS: QUEtiapine Fumarate 25 MG TABLET PO SCH ×2 (09:22→22:18)
[2021-11-16] MEDS: Magnesium Oxide 400 MG TABLET PO SCH ×2 (09:22)
[2021-11-16] MEDS: Famotidine 20 MG TABLET PO SCH ×2 (09:22→22:18)
[2021-11-16] MEDS: Aspirin Enteric Coated 81 MG Tablet PO SCH (09:22)
[2021-11-16] MEDS: Metoprolol XL (24 HR) Succ 50 MG TAB.ER.24H PO SCH (09:22)
[2021-11-16] MEDS: Cholecalciferol (D-3) 1,000 UNIT (25MCG) TABLET PO SCH (09:23)
[2021-11-16] MEDS ORDERED: Potassium Phosphate 44 MEQ in 0.9 % Sodium Chloride 250 ML IVPB ONE (16:46)
[2021-11-17] MEDS: *HR* Enoxaparin 40 MG/0.4 ML SYRINGE SQ SCH (06:26)
[2021-11-17] MEDS: Cholecalciferol (D-3) 1,000 UNIT (25MCG) TABLET PO SCH (09:29)
[2021-11-17] MEDS: Magnesium Oxide 400 MG TABLET PO SCH (09:29)
[2021-11-17] MEDS: Metoprolol XL (24 HR) Succ 50 MG TAB.ER.24H PO SCH (09:30)
[2021-11-17] MEDS: Famotidine 20 MG TABLET PO SCH ×2 (09:30→20:10)
[2021-11-17] MEDS: Aspirin Enteric Coated 81 MG Tablet PO SCH (09:30)
[2021-11-17] MEDS: QUEtiapine Fumarate 25 MG TABLET PO SCH ×2 (09:30→20:10)
[2021-11-17] MEDS: Melatonin 3 MG TABLET PO PRN (20:10)
[2021-11-18] MEDS: *HR* Enoxaparin 40 MG/0.4 ML SYRINGE SQ SCH (06:17)
[2021-11-18] MEDS: Magnesium Oxide 400 MG TABLET PO SCH (09:50)
[2021-11-18] MEDS: Aspirin Enteric Coated 81 MG Tablet PO SCH (09:50)
[2021-11-18] MEDS: Famotidine 20 MG TABLET PO SCH ×2 (09:50→21:00)
[2021-11-18] MEDS: Metoprolol XL (24 HR) Succ 50 MG TAB.ER.24H PO SCH (09:51)
[2021-11-18] MEDS: QUEtiapine Fumarate 25 MG TABLET PO SCH ×2 (09:51→21:00)
[2021-11-18] MEDS: Cholecalciferol (D-3) 1,000 UNIT (25MCG) TABLET PO SCH (09:51)
[2021-11-18] MEDS: Haloperidol Lactate 5 MG/ML VIAL IM PRN (13:23)
[2021-11-18] MEDS: *HR* LORazepam 2 MG/ML VIAL IM PRN (13:36)
[2021-11-19] MEDS: *HR* Enoxaparin 40 MG/0.4 ML SYRINGE SQ SCH (06:00)
[2021-11-19] MEDS: Famotidine 20 MG TABLET PO SCH ×2 (11:25→19:03)
[2021-11-19] MEDS: Metoprolol XL (24 HR) Succ 50 MG TAB.ER.24H PO SCH (11:25)
[2021-11-19] MEDS: Magnesium Oxide 400 MG TABLET PO SCH (11:25)
[2021-11-19] MEDS: QUEtiapine Fumarate 25 MG TABLET PO SCH ×2 (11:25→19:03)
[2021-11-19] MEDS: Aspirin Enteric Coated 81 MG Tablet PO SCH (11:25)
[2021-11-19] MEDS: Cholecalciferol (D-3) 1,000 UNIT (25MCG) TABLET PO SCH (11:25)
[2021-11-19] MEDS: Haloperidol Lactate 5 MG/ML VIAL IM PRN (18:18)
[2021-11-19] MEDS: Melatonin 3 MG TABLET PO PRN (19:03)
[2021-11-19] MEDS: *HR* LORazepam 2 MG/ML VIAL IM PRN (22:29)
[2021-11-20] MEDS: *HR* Enoxaparin 40 MG/0.4 ML SYRINGE SQ SCH (05:32)
[2021-11-20 08:27] LABS: BUN/Creatinine Ratio 8 (6-26); Blood Urea Nitrogen 7 mg/dL (8-23); Calcium 8.3 mg/dL (8.6-10.3); Carbon Dioxide 30 mEq/L (23-29); Chloride 109 mEq/L (98-107); Glucose 77 mg/dL (70-105); Osmolality,Calculated 297 (280-300); Potassium 3.6 mEq/L (3.5-5.1); Sodium 145 mEq/L (136-145); eGFR For African Americans > 60 (> 60); eGFR For Non-African Americans > 60 (> 60)
[2021-11-20 09:05] LABS: Magnesium 1.7 mg/dL (1.6-2.6); Phosphorous 3.2 mg/dL (2.7-4.5)
[2021-11-20] MEDS: Aspirin Enteric Coated 81 MG Tablet PO SCH (10:34)
[2021-11-20] MEDS: Metoprolol XL (24 HR) Succ 50 MG TAB.ER.24H PO SCH (10:35)
[2021-11-20] MEDS: Magnesium Oxide 400 MG TABLET PO SCH (10:35)
[2021-11-20] MEDS: Cholecalciferol (D-3) 1,000 UNIT (25MCG) TABLET PO SCH (10:35)
[2021-11-20] MEDS: QUEtiapine Fumarate 25 MG TABLET PO SCH ×3 (10:35→21:30)
[2021-11-20] MEDS: Famotidine 20 MG TABLET PO SCH ×2 (10:35→21:30)
[2021-11-20] MEDS ORDERED: Magnesium Oxide 400 MG TABLET PO SCH (14:15)
[2021-11-21] MEDS: *HR* Enoxaparin 40 MG/0.4 ML SYRINGE SQ SCH (07:15)
[2021-11-21] MEDS: Metoprolol XL (24 HR) Succ 50 MG TAB.ER.24H PO SCH (09:45)
[2021-11-21] MEDS: QUEtiapine Fumarate 25 MG TABLET PO SCH ×2 (09:45→19:41)
[2021-11-21] MEDS: Magnesium Oxide 400 MG TABLET PO SCH (09:45)
[2021-11-21] MEDS: Cholecalciferol (D-3) 1,000 UNIT (25MCG) TABLET PO SCH (09:45)
[2021-11-21] MEDS: Famotidine 20 MG TABLET PO SCH ×2 (09:45→19:41)
[2021-11-21] MEDS: Aspirin Enteric Coated 81 MG Tablet PO SCH (09:46)
[2021-11-21] MEDS: *HR* LORazepam 2 MG/ML VIAL IM PRN (18:30)
[2021-11-21] MEDS: Haloperidol Lactate 5 MG/ML VIAL IM PRN (18:30)
[2021-11-22] MEDS: *HR* Enoxaparin 40 MG/0.4 ML SYRINGE SQ SCH (05:28)
[2021-11-22] MEDS: Magnesium Oxide 400 MG TABLET PO SCH (09:23)
[2021-11-22] MEDS: Metoprolol XL (24 HR) Succ 50 MG TAB.ER.24H PO SCH (09:23)
[2021-11-22] MEDS: Aspirin Enteric Coated 81 MG Tablet PO SCH (09:23)
[2021-11-22] MEDS: QUEtiapine Fumarate 25 MG TABLET PO SCH ×2 (09:23→19:51)
[2021-11-22] MEDS: *HR* LORazepam 2 MG/ML VIAL IM PRN ×2 (09:23→18:02)
[2021-11-22] MEDS: Cholecalciferol (D-3) 1,000 UNIT (25MCG) TABLET PO SCH (09:23)
[2021-11-22] MEDS: Famotidine 20 MG TABLET PO SCH ×2 (09:23→19:51)
[2021-11-22] MEDS: Haloperidol Lactate 5 MG/ML VIAL IM PRN ×2 (09:24→18:02)
[2021-11-23] MEDS: Ipratropium/Albuterol Neb 3 ML IH PRN (04:50)
[2021-11-23] MEDS: *HR* Enoxaparin 40 MG/0.4 ML SYRINGE SQ SCH (05:17)
[2021-11-23] MEDS: Famotidine 20 MG TABLET PO SCH ×2 (10:14→22:38)
[2021-11-23] MEDS: Magnesium Oxide 400 MG TABLET PO SCH (10:14)
[2021-11-23] MEDS: QUEtiapine Fumarate 25 MG TABLET PO SCH ×2 (10:14→22:38)
[2021-11-23] MEDS: Metoprolol XL (24 HR) Succ 50 MG TAB.ER.24H PO SCH (10:14)
[2021-11-23] MEDS: Aspirin Enteric Coated 81 MG Tablet PO SCH (10:14)
[2021-11-23] MEDS: Cholecalciferol (D-3) 1,000 UNIT (25MCG) TABLET PO SCH (10:15)
[2021-11-23] MEDS: Haloperidol Lactate 5 MG/ML VIAL IM PRN (22:37)
[2021-11-23] MEDS: *HR* LORazepam 2 MG/ML VIAL IM PRN (22:37)
[2021-11-24] MEDS: *HR* Enoxaparin 40 MG/0.4 ML SYRINGE SQ SCH (06:10)
[2021-11-24] MEDS: Magnesium Oxide 400 MG TABLET PO SCH (10:10)
[2021-11-24] MEDS: Aspirin Enteric Coated 81 MG Tablet PO SCH (10:10)
[2021-11-24] MEDS: Famotidine 20 MG TABLET PO SCH ×2 (10:11→20:57)
[2021-11-24] MEDS: Metoprolol XL (24 HR) Succ 50 MG TAB.ER.24H PO SCH (10:11)
[2021-11-24] MEDS: QUEtiapine Fumarate 25 MG TABLET PO SCH ×2 (10:11→20:41)
[2021-11-24] MEDS: Cholecalciferol (D-3) 1,000 UNIT (25MCG) TABLET PO SCH (10:11)
[2021-11-24] MEDS: *HR* LORazepam 2 MG/ML VIAL IM PRN ×2 (11:03→20:41)
[2021-11-24] MEDS: Haloperidol Lactate 5 MG/ML VIAL IM PRN ×2 (11:03→20:41)
[2021-11-24] MEDS: Melatonin 3 MG TABLET PO PRN (20:41)
[2021-11-25] MEDS: *HR* Enoxaparin 40 MG/0.4 ML SYRINGE SQ SCH (07:16)
[2021-11-25] MEDS: Haloperidol Lactate 5 MG/ML VIAL IM PRN ×2 (13:43→19:42)
[2021-11-25] MEDS: *HR* LORazepam 2 MG/ML VIAL IM PRN ×2 (13:43→19:42)
[2021-11-25] MEDS: Aspirin Enteric Coated 81 MG Tablet PO SCH (15:40)
[2021-11-25] MEDS: QUEtiapine Fumarate 25 MG TABLET PO SCH ×2 (15:41→19:43)
[2021-11-25] MEDS: Metoprolol XL (24 HR) Succ 50 MG TAB.ER.24H PO SCH (15:41)
[2021-11-25] MEDS: Famotidine 20 MG TABLET PO SCH ×2 (15:41→19:43)
[2021-11-25] MEDS: Cholecalciferol (D-3) 1,000 UNIT (25MCG) TABLET PO SCH (15:41)
[2021-11-25] MEDS: Magnesium Oxide 400 MG TABLET PO SCH (15:41)
[2021-11-26] MEDS: *HR* Enoxaparin 40 MG/0.4 ML SYRINGE SQ SCH (05:25)
[2021-11-26] MEDS: QUEtiapine Fumarate 25 MG TABLET PO SCH ×2 (10:46→20:43)
[2021-11-26] MEDS: Metoprolol XL (24 HR) Succ 50 MG TAB.ER.24H PO SCH (10:47)
[2021-11-26] MEDS: Magnesium Oxide 400 MG TABLET PO SCH (11:07)
[2021-11-26] MEDS: Aspirin Enteric Coated 81 MG Tablet PO SCH (11:07)
[2021-11-26] MEDS: Famotidine 20 MG TABLET PO SCH ×2 (11:07→20:43)
[2021-11-26] MEDS: Cholecalciferol (D-3) 1,000 UNIT (25MCG) TABLET PO SCH (11:08)
[2021-11-27] MEDS: Haloperidol Lactate 5 MG/ML VIAL IM PRN (02:29)
[2021-11-27] MEDS: *HR* Enoxaparin 40 MG/0.4 ML SYRINGE SQ SCH (05:20)
[2021-11-27] MEDS: Famotidine 20 MG TABLET PO SCH ×2 (11:28→22:19)
[2021-11-27] MEDS: Magnesium Oxide 400 MG TABLET PO SCH (11:28)
[2021-11-27] MEDS: Aspirin Enteric Coated 81 MG Tablet PO SCH (11:28)
[2021-11-27] MEDS: Cholecalciferol (D-3) 1,000 UNIT (25MCG) TABLET PO SCH (11:29)
[2021-11-27] MEDS: QUEtiapine Fumarate 25 MG TABLET PO SCH ×2 (11:29→22:19)
[2021-11-28] MEDS: *HR* Enoxaparin 40 MG/0.4 ML SYRINGE SQ SCH (05:29)
[2021-11-28] MEDS: Ipratropium/Albuterol Neb 3 ML IH PRN ×2 (06:03→23:22)
[2021-11-28] MEDS: QUEtiapine Fumarate 25 MG TABLET PO SCH ×2 (11:59→19:38)
[2021-11-28] MEDS: Magnesium Oxide 400 MG TABLET PO SCH (11:59)
[2021-11-28] MEDS: Aspirin Enteric Coated 81 MG Tablet PO SCH (11:59)
[2021-11-28] MEDS: Famotidine 20 MG TABLET PO SCH ×2 (11:59→19:38)
[2021-11-28] MEDS: Cholecalciferol (D-3) 1,000 UNIT (25MCG) TABLET PO SCH (11:59)
[2021-11-29] MEDS: Haloperidol Lactate 5 MG/ML VIAL IM PRN (01:50)
[2021-11-29] MEDS: *HR* LORazepam 2 MG/ML VIAL IM PRN (01:51)
[2021-11-29] MEDS: *HR* Enoxaparin 40 MG/0.4 ML SYRINGE SQ SCH (05:11)
[2021-11-29] MEDS: Aspirin Enteric Coated 81 MG Tablet PO SCH (10:27)
[2021-11-29] MEDS: Famotidine 20 MG TABLET PO SCH ×2 (10:28→20:12)
[2021-11-29] MEDS: Magnesium Oxide 400 MG TABLET PO SCH (10:28)
[2021-11-29] MEDS: Cholecalciferol (D-3) 1,000 UNIT (25MCG) TABLET PO SCH (10:29)
[2021-11-29] MEDS: QUEtiapine Fumarate 25 MG TABLET PO SCH ×2 (15:39→20:08)
[2021-11-30] MEDS: *HR* Enoxaparin 40 MG/0.4 ML SYRINGE SQ SCH (07:12)
[2021-11-30] MEDS: Magnesium Oxide 400 MG TABLET PO SCH (10:18)
[2021-11-30] MEDS: Cholecalciferol (D-3) 1,000 UNIT (25MCG) TABLET PO SCH (10:18)
[2021-11-30] MEDS: Famotidine 20 MG TABLET PO SCH ×2 (10:18→20:14)
[2021-11-30] MEDS: Aspirin Enteric Coated 81 MG Tablet PO SCH (10:18)
[2021-11-30] MEDS: QUEtiapine Fumarate 25 MG TABLET PO SCH ×2 (10:18→20:13)
[2021-11-30] MEDS: Haloperidol Lactate 5 MG/ML VIAL IM PRN (21:13)
[2021-11-30] MEDS: *HR* LORazepam 2 MG/ML VIAL IM PRN (21:14)
[2021-12-01] MEDS: Melatonin 3 MG TABLET PO PRN (03:19)
[2021-12-01] MEDS: *HR* Enoxaparin 40 MG/0.4 ML SYRINGE SQ SCH (07:14)
[2021-12-01] MEDS: Famotidine 20 MG TABLET PO SCH ×2 (11:00→21:51)
[2021-12-01] MEDS: Cholecalciferol (D-3) 1,000 UNIT (25MCG) TABLET PO SCH (11:00)
[2021-12-01] MEDS: QUEtiapine Fumarate 25 MG TABLET PO SCH ×2 (11:00→21:51)
[2021-12-01] MEDS: Aspirin Enteric Coated 81 MG Tablet PO SCH (11:00)
[2021-12-01] MEDS: Magnesium Oxide 400 MG TABLET PO SCH (11:00)
[2021-12-02] MEDS: *HR* Enoxaparin 40 MG/0.4 ML SYRINGE SQ SCH (06:45)
[2021-12-02] MEDS: Aspirin Enteric Coated 81 MG Tablet PO SCH (10:12)
[2021-12-02] MEDS: Famotidine 20 MG TABLET PO SCH ×2 (10:20→20:27)
[2021-12-02] MEDS: Cholecalciferol (D-3) 1,000 UNIT (25MCG) TABLET PO SCH (10:20)
[2021-12-02] MEDS: QUEtiapine Fumarate 25 MG TABLET PO SCH ×2 (10:21→20:27)
[2021-12-02] MEDS: Magnesium Oxide 400 MG TABLET PO SCH (10:21)
[2021-12-02] MEDS: *HR* LORazepam 2 MG/ML VIAL IM PRN (21:09)
[2021-12-02] MEDS: Haloperidol Lactate 5 MG/ML VIAL IM PRN (21:09)
[2021-12-03] MEDS: *HR* Enoxaparin 40 MG/0.4 ML SYRINGE SQ SCH (05:52)
[2021-12-03] MEDS: Famotidine 20 MG TABLET PO SCH ×2 (12:41→20:57)
[2021-12-03] MEDS: Cholecalciferol (D-3) 1,000 UNIT (25MCG) TABLET PO SCH (12:41)
[2021-12-03] MEDS: QUEtiapine Fumarate 25 MG TABLET PO SCH ×3 (12:43→21:03)
[2021-12-03] MEDS: Aspirin Enteric Coated 81 MG Tablet PO SCH (13:06)
[2021-12-03] MEDS: Magnesium Oxide 400 MG TABLET PO SCH (13:06)
[2021-12-03 19:26] LABS: Adenovirus Not Detected (Not Detect); Bordetella Pertussis Not Detected (Not Detect); Chlamydophila pneumoniae Not Detected (Not Detect); Coronavirus 229E Not Detected (Not Detect); Coronavirus HKU1 Not Detected (Not Detect); Coronavirus NL63 Not Detected (Not Detect); Coronavirus OC43 Not Detected (Not Detect); Human Metapneumovirus Not Detected (Not Detect); Human Rhinovirus/Enterovirus Not Detected (Not Detect); Influenza A Subtype 2009 H1 Not Detected (Not Detect); Influenza B Not Detected (Not Detect); Mycoplasma pneumoniae Not Detected (Not Detect); Parainfluenza Virus 1 Not Detected (Not Detect); Parainfluenza Virus 2 Not Detected (Not Detect); Parainfluenza Virus 3 Not Detected (Not Detect); Parainfluenza Virus 4 Not Detected (Not Detect); Respiratory Syncytial Virus Not Detected (Not Detect); SARS-CoV-2 Not Detected (Not Detect)
[2021-12-03] MEDS: Melatonin 3 MG TABLET PO PRN (20:55)
[2021-12-04 05:00] VITALS: BP 148/91; PULSE 112; TEMP 97.5; O2SAT 99
[2021-12-04] MEDS: Famotidine 20 MG TABLET PO SCH (07:45)
[2021-12-04] MEDS: QUEtiapine Fumarate 25 MG TABLET PO SCH (07:45)
[2021-12-04] MEDS: *HR* LORazepam 2 MG/ML VIAL IM PRN (08:59)
== END 2021-12-04 12:25 | DRG 463 ==
LOC: EMEROOARM 15:22 → SUATTDRO 10-31 18:16 → INTOOBSV 10-31 18:16 → 3ANU 10-31 18:16 → SUATTDRO 11-02 10:39
PROVIDERS: ADMIT General Practice; ATTEND Internal Medicine